=== PATIENT | female | born 1990 | race Caucasian/White ===

== ENCOUNTER 2016-08-15 10:24 | Inpatient (IN) | payer BC ==
[~2016-08-15] VITALS: Ht 170.2 cm; Wt 79.5 kg
--- NOTE | ~2016-08-15 | OR ---
PATIENT'S NAME: ALYSSA ANDRADE [facility] AGE: 25 Y [address] ROOM: [address] [address] LOCATION: GOBS ADMIT DATE: 08/15/2016 OR/Procedure Report DISCHARGE DATE: FAMILY PHYSICIAN: Fadia Parkinson MD ATTENDING PHYSICIAN: Whitney Recinos SURGEON: Whitney Recinos MD SPUD GRADER: DATE OF PROCEDURE: 08/15/2016 PREOPERATIVE DIAGNOSIS: Term intrauterine . POSTOPERATIVE DIAGNOSES: 1. Term intrauterine /delivered. 2. First degree perineal laceration. PROCEDURES: 1. Spontaneous vaginal delivery. 2. Repair of 1st degree perineal laceration. 3. Epidural. FINDINGS: The patient is a 25-year-old, primipara at 40 weeks plus 2 who presented to Labor and Delivery today, spontaneously benita. Delivered is a viable 8-pound 15-ounce female with score of 9 at 1 minute and 9 at 5 minutes. Also delivered, is an intact three-vessel placenta. DESCRIPTION OF PROCEDURE: The patient underwent artificial rupture of membranes at approximately 1215 hours today with return of clear fluid. At about 1645 hours, the patient was complete and began pushing. At 1912 hours, there was spontaneous delivery of the vertex in a straight occiput anterior position, followed by the remainder of the infant. The cord was clamped, cut, and cord blood obtained. The was placed on mother's lap in the delivery room for her care. Soon thereafter, came spontaneous delivery of the placenta. The placenta was intact. Also, it was three vessel. There was fairly vigorous bleeding after delivery of the placenta which ultimately resolved with Pitocin and uterine massage. Inspection of the vaginal vault revealed an intact cervix. There was a small first-degree perineal laceration that was sewn with 2-0 chromic in the usual fashion. ESTIMATED BLOOD LOSS: 200 mL. Mother and both remained in the delivery room in satisfactory condition. WHITNEY RECINOS MD PATIENT'S NAME: ALYSSA ANDRADE [facility] AGE: 25 Y [address] ROOM: [address] [address] LOCATION: GOBS ADMIT DATE: 08/15/2016 OR/Procedure Report DISCHARGE DATE: FAMILY PHYSICIAN: Fadia Parkinson MD ATTENDING PHYSICIAN: Whitney Recinos/shandra /[id number] d: 08/16/16 0019 t: 08/27/16 1412, OPERATIVE SUMMARY
[~2016-08-15 10:24] MED LIST: ACETAMINOPHEN325 MG PO; PRENATAL 1+1)(P1 TAB PO; TUMS200 MG PO; ZANTAC (NON-FO150 MG PO
[2016-08-15 12:09] LABS: BASOPHIL % 0.2 %; EOSINOPHIL % 0.1 %; HEMATOCRIT 32.5 % (33.0-46.0); HEMOGLOBIN 10.8 g/dL (11.0-15.0); IMMATURE GRANULOCYTE % 0.2 %; LYMPHOCYTE # 1.4 K/uL (0.8-4.0); LYMPHOCYTE % 16.6 %; MCH 28.1 pg (27.0-34.0); MCHC 33.2 gm/dL (32.0-36.5); MCV 84.4 fl (83.0-98.0); MONOCYTE # 0.6 K/uL (0.0-1.0); MONOCYTE % 6.7 %; MPV 11.5 fl (9.4-12.4); NEUTROPHIL # (ANC) 6.3 K/uL (1.8-7.8); NEUTROPHIL % 76.2 %; NRBC % 0 /100WBC (0-0.00); PLATELET COUNT 164 K/uL (150-450); RBC 3.85 M/uL (3.50-5.00); RDW-CV 12.8 % (11.9-14.6); WBC 8.3 K/uL (4.0-11.0)
--- NOTE | 2016-08-15 18:00 | NUR ---
08/15/16 1800: Pt. pushing. Clear amniotic fluid. betty. decels w/ pushes. VSS.Recovery room record filled our w/ facts. Iv pump clear.
[2016-08-15 19:41] LABS: PCO2 43 mmHg (35-45); PO2 16 mmHg (80-90)
--- NOTE | 2016-08-16 05:59 | NUR ---
VSS. LAST HAD MOTRIN AT 0552. FUNDUS FIRM, AT THE UMBILICUS, SMALL FLOW. NEEDING ASSISTANCE WITH AT TIMES. SCREEN HAS BEEN ORDERED-MOM A-, BABY A+.
[2016-08-16 06:25] LABS: BASOPHIL % 0.2 %; EOSINOPHIL % 0.4 %; HEMATOCRIT 29.1 % (33.0-46.0); HEMOGLOBIN 9.2 g/dL (11.0-15.0); IMMATURE GRANULOCYTE % 0.4 %; LYMPHOCYTE # 1.6 K/uL (0.8-4.0); LYMPHOCYTE % 14.4 %; MCH 27.5 pg (27.0-34.0); MCHC 31.6 gm/dL (32.0-36.5); MCV 86.9 fl (83.0-98.0); MONOCYTE # 0.8 K/uL (0.0-1.0); MONOCYTE % 6.8 %; MPV 11.4 fl (9.4-12.4); NEUTROPHIL # (ANC) 8.6 K/uL (1.8-7.8); NEUTROPHIL % 77.8 %; NRBC % 0 /100WBC (0-0.00); PLATELET COUNT 158 K/uL (150-450); RBC 3.35 M/uL (3.50-5.00); RDW-CV 13.1 % (11.9-14.6); WBC 11.1 K/uL (4.0-11.0)
--- NOTE | 2016-08-16 16:46 | NUR ---
Significant Event: VSS, SL removed, up in halls, jacuzzi tub bath taken. Rhogam given. Motrin at 1409. Fundus firm, even, small flow. voids.
--- NOTE | 2016-08-17 05:48 | NUR ---
VSS. HAS BEEN UP AND WALKED THE HALLS. HAVING LOOSE STOOLS, DID NOT GIVE HER SURFAK LAST NIGHT. LAST HAD MOTRIN AT 2210.
[2016-08-17] MEDS ORDERED: SURFAK240 MG PO (09:02)
[2016-08-17] MEDS ORDERED: MOTRIN800 MG PO (09:03)
[2016-08-17] MEDS ORDERED: APNO TOP (09:03)
[2016-08-17] MEDS ORDERED: PERCOCET 5-3251 EACH PO (09:04)
--- NOTE | 2016-08-17 10:30 | NUR ---
1030 patient passed 2 clots 1/2" by 2". patient was a little concerned so I had Jenny Gamble come and check clots out and reassure patient. I informed patient if she she saturates 1 pad every hour or passes clot the size of a chichen egg or bigger ly down and rest for 1 hour if she is still doing that call the doctor. patient voices understanding. ok for dismissal per Jenny Gamble
== END 2016-08-17 11:10 | disposition disaster alternative care site (69) | DRG 775 ==
LOC: GOBS 10:24
PROVIDERS: ADMIT Family Medicine
PROC: 10E0XZZ Delivery of Products of Conception, External Approach (ICD-10-PCS; principal; 2016-08-15)
PROC: 10907ZC Drainage of Amniotic Fluid, Therapeutic from Products of Conception, Via Natural or Artificial Opening (ICD-10-PCS; principal; 2016-08-15)
PROC: 0HQ9XZZ Repair Perineum Skin, External Approach (ICD-10-PCS; principal; 2016-08-15)
PROC: 3E0234Z Introduction of Serum, Toxoid and Vaccine into Muscle, Percutaneous Approach (ICD-10-PCS; 2016-08-16)
DX: O48.0 Post-term pregnancy (principal); O70.0 First degree perineal laceration during delivery; Z3A.40 40 weeks gestation of pregnancy; Z29.13 Encounter for prophylactic Rho(D) immune globulin; Z37.0 Single live birth
CPT/HCPCS: J2210; J2590; J2791; J3010; J7120